=== PATIENT | male | born 1980 | race Caucasian/White ===

== ENCOUNTER → 2016-12-07 | Outpatient (REF) | payer OTHER | LOC: M LAB REF 10:55 | PROVIDERS: ATTEND Internal Medicine | DX: R07.9 Chest pain, unspecified (principal) ==

== ENCOUNTER → 2017-10-14 | Outpatient (REF) | payer OTHER | LOC: M SMT 13:32 | DX: Z30.2 Encounter for sterilization (principal) | CPT/HCPCS: 88302 ==

== ENCOUNTER → 2020-01-30 | Outpatient (CLI) | payer SELFPAY | LOC: M LABSMTC 11:33 | PROVIDERS: ATTEND Pediatrics | DX: Z20.828 Contact with and (suspected) exposure to other viral communicable diseases (principal) ==

== ENCOUNTER → 2020-02-03 | Outpatient (CLI) | payer SELFPAY | LOC: M LABSMTC 12:54 | PROVIDERS: ATTEND Pediatrics | DX: Z20.828 Contact with and (suspected) exposure to other viral communicable diseases (principal) ==

== ENCOUNTER → 2020-07-01 | Outpatient (CLI) | payer SELFPAY | LOC: M LABSMTC 11:14 | PROVIDERS: ATTEND Pediatrics | DX: Z20.822 Contact with and (suspected) exposure to COVID-19 (principal) ==

== ENCOUNTER → 2023-05-17 | Outpatient (CLI) | payer OTHER, SELFPAY ==
[2023-05-17 11:12] LABS: BASO # 0.1 10^3/uL (0.0-0.2); BASO % 1.1 % (0.0-1.0); EOS # 0.1 10^3/uL (0.0-0.5); EOS % 1.3 % (0.0-3.0); HEMATOCRIT 45.9 % (42.0-52.0); HEMOGLOBIN 15.6 g/dl (13.5-17.5); LYMPH # 2.7 10^3/uL (1.5-5.0); LYMPH % 36.8 % (24.0-44.0); MEAN CORPUSCULAR HEMOGLOBIN 30.8 pg (27.0-33.0); MEAN CORPUSCULAR VOLUME 90.5 fl (80.0-96.0); MONO # 0.6 10^3/uL (0.0-0.8); MONO % 7.5 % (2.0-8.0); NEUTROPHILS # 3.9 10^3/uL (1.5-8.5); NEUTROPHILS % 52.8 % (36.0-66.0); PLATELET COUNT, AUTOMATED 330 10^3/uL (150-450); RED BLOOD COUNT 5.07 10^6/uL (4.30-6.10); WHITE BLOOD COUNT 7.5 10^3/uL (4.0-10.0)
[2023-05-17 11:28] LABS: HEMOGLOBIN A1c 5.6 % (4.0-6.0)
[2023-05-17 11:34] LABS: ALBUMIN 4.4 G/DL (3.2-5.2); ALKALINE PHOSPHATASE 61 U/L (46-116); ALT/SGPT 53 U/L (7.0-40); AST/SGOT 31 U/L (<34); BILIRUBIN,TOTAL 0.7 MG/DL (0.3-1.2); BLOOD UREA NITROGEN 22 MG/DL (9-23); CALCIUM LEVEL 9.5 MG/DL (8.5-10.1); CARBON DIOXIDE LEVEL 28 MMOL/L (20-31); CHLORIDE LEVEL 102 MMOL/L (98-107); CHOLESTEROL LEVEL 230 MG/DL (<200); CHOLESTEROL RISK RATIO 5.19 (<5); CREATININE FOR GFR 0.96 MG/DL (0.70-1.30); GLOMERULAR FILTRATION RATE > 60.0 (>60); GLUCOSE, FASTING 90 MG/DL (60-100); HDL CHOLESTEROL 44.3 MG/DL (>40); LDL CHOLESTEROL 149.3 MG/DL (<100); MAGNESIUM LEVEL 1.9 MG/DL (1.8-2.4); NON-HDL-C 185.7 MG/DL; POTASSIUM SERUM 4.6 MMOL/L (3.5-5.1); SODIUM LEVEL 136 MMOL/L (136-145); TOTAL PROTEIN 7.7 G/DL (5.7-8.2); TRIGLYCERIDES LEVEL 182 MG/DL (<150)
[2023-05-17 11:35] LABS: THYROID STIMULATING HORMONE 1.697 uIU/ML (0.55-4.78)
[2023-05-18 08:42] LABS: LDL DIRECT 173 mg/dL (0-99)
== END ==
LOC: M WUC 08:24
PROVIDERS: ATTEND Internal Medicine Cardiovascular Disease
DX: E78.2 Mixed hyperlipidemia (principal); I48.0 Paroxysmal atrial fibrillation; I50.9 Heart failure, unspecified; R06.02 Shortness of breath; R73.09 Other abnormal glucose; Z13.29 Encounter for screening for other suspected endocrine disorder

== ENCOUNTER → 2023-06-28 | Outpatient (REF) | payer OTHER ==
[2023-06-28 12:39] LABS: PSA SCREENING 0.44 NG/ML (< 4.00)
[2023-06-28 12:43] LABS: FOLLICLE STIMULATING HORMONE 6.4 mIU/ML (1.4-18.1)
[2023-06-28 12:44] LABS: ESTRADIOL 33.6 PG/ML (<39.8); LUTEINIZING HORMONE 2.3 mIU/ML (1.5-9.3)
[2023-06-28 12:47] LABS: HEMATOCRIT 45.6 % (42.0-52.0); HEMOGLOBIN 14.9 g/dl (13.5-17.5); MEAN CORPUSCULAR HEMOGLOBIN 30.8 pg (27.0-33.0); MEAN CORPUSCULAR HGB CONC 32.7 g/dl (32.0-36.5); MEAN CORPUSCULAR VOLUME 94.4 fl (80.0-96.0); PLATELET COUNT, AUTOMATED 294 10^3/uL (150-450); RED BLOOD COUNT 4.83 10^6/uL (4.30-6.10); WHITE BLOOD COUNT 6.1 10^3/uL (4.0-10.0)
== END ==
LOC: M LABWUC 11:22
PROVIDERS: ATTEND Physician Assistant
DX: E29.1 Testicular hypofunction (principal)
CPT/HCPCS: 36415; 82670; 83001; 83002; 84403; 85027; G0103

== ENCOUNTER 2024-01-06 07:18 | Observation (INO) | payer OTHER ==
[2024-01-06] VITALS (13 sets, daily range): BP systolic 131–162; BP diastolic 82–90; TEMP 97.9–101.1; O2SAT 92–94
[~2024-01-06] VITALS: Ht 172.7 cm; Wt 109.8 kg
[~2024-01-06 07:18] MED LIST: AMPH1CAP9 PO; CLON0.1D3 TOP; ROSU20TA86 PO; VALS1TAB66 PO; VITA100093 PO
[2024-01-06] MEDS ORDERED: NS 1,000 ML IV SCH ×2 (07:45→09:10)
[2024-01-06] MEDS ORDERED: TEST10GE TOP (07:53)
[2024-01-06] MEDS ORDERED: ONDANSETRON 4MG 2ML VIAL As Ordered ONE (08:50)
[2024-01-06] MEDS ORDERED: fentaNYL 100 MCG/2 ML INJECTION As Ordered ONE (08:50)
[2024-01-06] MEDS ORDERED: LIDOCAINE 2% 100MG/5ML SDV (FOR ANES.) As Ordered ONE (08:50)
[2024-01-06] MEDS ORDERED: KETOROLAC 60MG 2ML VIAL As Ordered ONE (08:50)
[2024-01-06] MEDS ORDERED: MIDAZOLAM INJ 2MG/2ML VIAL As Ordered ONE (08:50)
[2024-01-06] MEDS ORDERED: propofoL 200 MG/20 ML VIAL As Ordered ONE (08:50)
[2024-01-06] MEDS ORDERED: oxyCODONE 5MG TAB PO PRN (09:10)
[2024-01-06] MEDS ORDERED: fentaNYL 100 MCG/2 ML INJECTION IV PRN (09:10)
[2024-01-06] MEDS ORDERED: ONDANSETRON 4MG 2ML VIAL IV PRN (09:10)
[2024-01-06] MEDS ORDERED: HYDROMORPHONE HCL 0.5 MG/ 0.5 ML SYRINGE IV PRN (09:10)
[2024-01-06] MEDS: ALBUTEROL SULFATE 2.5MG/0.5ML INH NEB SOLN INH ONE (11:02)
[2024-01-06] MEDS ORDERED: ALBUTEROL SULFATE 2.5MG/0.5ML INH NEB SOLN NEB PRN (11:40)
[2024-01-06 12:04] LABS: HEMATOCRIT 44.2 % (42.0-52.0); HEMOGLOBIN 14.7 g/dl (13.5-17.5); MEAN CORPUSCULAR HEMOGLOBIN 30.8 pg (27.0-33.0); MEAN CORPUSCULAR HGB CONC 33.3 g/dl (32.0-36.5); MEAN CORPUSCULAR VOLUME 92.7 fl (80.0-96.0); PLATELET COUNT, AUTOMATED 294 10^3/uL (150-450); RED BLOOD COUNT 4.77 10^6/uL (4.30-6.10); WHITE BLOOD COUNT 20.1 10^3/uL (4.0-10.0)
[2024-01-06 12:23] LABS: VENOUS HCO3 23.1 MMOL/L (23.0-27.0); VENOUS O2 SATURATION 56.9 % (60.0-80.0); VENOUS PARTIAL PRESSURE CO2 54.3 mmHg (38.0-50.0); VENOUS PARTIAL PRESSURE O2 31.2 mmHg (30.0-50.0); VENOUS PH 7.246 UNITS (7.330-7.430); VENOUS STANDARD HCO3 19.4 MMOL/L; VENOUS TOTAL CO2 24.7 MMOL/L (24.0-28.0)
[2024-01-06 12:32] LABS: ALBUMIN 3.8 G/DL (3.2-5.2); ALKALINE PHOSPHATASE 59 U/L (40-129); ALT/SGPT 32 U/L (7.0-40); AST/SGOT 20 U/L (<34); BILIRUBIN,TOTAL 0.6 MG/DL (0.3-1.2); BLOOD UREA NITROGEN 18 MG/DL (9-23); CALCIUM LEVEL 9.1 MG/DL (8.5-10.1); CARBON DIOXIDE LEVEL 25 MMOL/L (20-31); CHLORIDE LEVEL 108 MMOL/L (98-107); CREATININE FOR GFR 0.76 MG/DL (0.70-1.30); GLOMERULAR FILTRATION RATE > 60.0 (>60); GLUCOSE, FASTING 118 MG/DL (60-100); POTASSIUM SERUM 3.9 MMOL/L (3.5-5.1); SODIUM LEVEL 140 MMOL/L (136-145); TOTAL PROTEIN 7.1 G/DL (5.7-8.2)
[2024-01-06 12:38] LABS: PROCALCITONIN <0.04 ng/ml
[2024-01-06] MEDS: NS 500 ML IV ONE ×2 (13:24→17:49)
[2024-01-06] MEDS: IPRATROPIUM 0.5MG/ALBUTEROL 2.5MG INH SOL UD 3ML (DUONEB) NEB SCH (15:12)
[2024-01-06] MEDS ORDERED: methylPREDNISolone 40MG 1ML VIAL IV SCH (16:00)
[2024-01-06] MEDS: METOCLOPRAMIDE INJ 10MG/2ML VIAL IV SCH (16:03)
[2024-01-06] MEDS: cefTRIAXone SOD 1 GM in DEXTROSE 5% (D5W) ADV/MINI-BAG 50 ML IV SCH (16:03)
[2024-01-06] MEDS ORDERED: HOME MED LIST COMPLETE! XX SCH (16:50)
[2024-01-06] MEDS: VALSARTAN 80 MG TAB (DIOVAN) PO SCH (17:59)
[2024-01-06] MEDS: methylPREDNISolone 40MG 1ML VIAL IV SCH (20:11)
[2024-01-06] MEDS: DOXYCYCLINE HYCLATE 100MG TABLET PO SCH (20:11)
[2024-01-06 22:10] LABS: VENOUS BASE EXCESS -0.4 (-2.0-2.0); VENOUS HCO3 23.9 MMOL/L (23.0-27.0); VENOUS O2 SATURATION 84.5 % (60.0-80.0); VENOUS PARTIAL PRESSURE CO2 38.1 mmHg (38.0-50.0); VENOUS PARTIAL PRESSURE O2 45.7 mmHg (30.0-50.0); VENOUS PH 7.415 UNITS (7.330-7.430); VENOUS STANDARD HCO3 23.8 MMOL/L; VENOUS TOTAL CO2 25.1 MMOL/L (24.0-28.0)
[2024-01-06 22:14] LABS: BASO # 0.1 10^3/uL (0.0-0.2); BASO % 0.3 % (0.0-1.0); EOS % 0.1 % (0.0-3.0); HEMATOCRIT 39.7 % (42.0-52.0); HEMOGLOBIN 13.8 g/dl (13.5-17.5); LYMPH # 1.3 10^3/uL (1.5-5.0); LYMPH % 5.2 % (24.0-44.0); MEAN CORPUSCULAR HEMOGLOBIN 31.6 pg (27.0-33.0); MEAN CORPUSCULAR HGB CONC 34.8 g/dl (32.0-36.5); MEAN CORPUSCULAR VOLUME 90.8 fl (80.0-96.0); MONO # 0.7 10^3/uL (0.0-0.8); MONO % 2.8 % (2.0-8.0); NEUTROPHILS # 22.7 10^3/uL (1.5-8.5); NEUTROPHILS % 91.1 % (36.0-66.0); PLATELET COUNT, AUTOMATED 294 10^3/uL (150-450); RED BLOOD COUNT 4.37 10^6/uL (4.30-6.10); WHITE BLOOD COUNT 24.9 10^3/uL (4.0-10.0)
[2024-01-06 22:53] LABS: PROCALCITONIN 2.33 ng/ml
[2024-01-06 22:55] LABS: ALBUMIN 3.6 G/DL (3.2-5.2); ALKALINE PHOSPHATASE 58 U/L (40-129); ALT/SGPT 29 U/L (7.0-40); AST/SGOT 14 U/L (<34); BILIRUBIN,DIRECT 0.2 MG/DL (<0.4); BILIRUBIN,TOTAL 0.8 MG/DL (0.3-1.2); BLOOD UREA NITROGEN 14 MG/DL (9-23); CALCIUM LEVEL 9.4 MG/DL (8.5-10.1); CARBON DIOXIDE LEVEL 28 MMOL/L (20-31); CHLORIDE LEVEL 106 MMOL/L (98-107); CREATININE FOR GFR 0.83 MG/DL (0.70-1.30); GLOMERULAR FILTRATION RATE > 60.0 (>60); GLUCOSE, FASTING 138 MG/DL (60-100); MAGNESIUM LEVEL 1.8 MG/DL (1.8-2.4); POTASSIUM SERUM 4.1 MMOL/L (3.5-5.1); SODIUM LEVEL 138 MMOL/L (136-145); TOTAL PROTEIN 6.7 G/DL (5.7-8.2)
[2024-01-06] MEDS: DOCUSATE SODIUM 100MG CAPSULE PO SCH (23:23)
[2024-01-06] MEDS: ACETAMINOPHEN 325 MG TAB PO PRN (23:35)
[2024-01-07] VITALS (11 sets, daily range): BP systolic 145–172; BP diastolic 79–95; TEMP 97.2–99.4; O2SAT 90–96
[2024-01-07 06:25] LABS: HEMATOCRIT 40.7 % (42.0-52.0); HEMOGLOBIN 13.8 g/dl (13.5-17.5); MEAN CORPUSCULAR HEMOGLOBIN 31.2 pg (27.0-33.0); MEAN CORPUSCULAR HGB CONC 33.9 g/dl (32.0-36.5); MEAN CORPUSCULAR VOLUME 91.9 fl (80.0-96.0); PLATELET COUNT, AUTOMATED 315 10^3/uL (150-450); RED BLOOD COUNT 4.43 10^6/uL (4.30-6.10); WHITE BLOOD COUNT 24.9 10^3/uL (4.0-10.0)
[2024-01-07 06:48] LABS: ALBUMIN 3.6 G/DL (3.2-5.2); ALKALINE PHOSPHATASE 61 U/L (40-129); ALT/SGPT 30 U/L (7.0-40); AST/SGOT 15 U/L (<34); BILIRUBIN,TOTAL 1.2 MG/DL (0.3-1.2); BLOOD UREA NITROGEN 12 MG/DL (9-23); CALCIUM LEVEL 9.6 MG/DL (8.5-10.1); CARBON DIOXIDE LEVEL 27 MMOL/L (20-31); CHLORIDE LEVEL 106 MMOL/L (98-107); CREATININE FOR GFR 0.71 MG/DL (0.70-1.30); GLOMERULAR FILTRATION RATE > 60.0 (>60); GLUCOSE, FASTING 134 MG/DL (60-100); POTASSIUM SERUM 4.6 MMOL/L (3.5-5.1); SODIUM LEVEL 137 MMOL/L (136-145)
[2024-01-07] MEDS: VITAMIN D 1,000 INTERNATIONAL UNITS TABLET PO SCH (10:03)
[2024-01-07] MEDS: ROSUVASTATIN 10 MG TAB (CRESTOR) PO SCH (10:05)
[2024-01-07] MEDS: PANTOPRAZOLE 40MG TAB (PROTONIX) PO SCH (10:05)
[2024-01-08] VITALS (9 sets, daily range): BP systolic 131–156; BP diastolic 77–90; TEMP 96.3–98.4; O2SAT 90–95
[2024-01-08 06:20] LABS: HEMOGLOBIN 13.5 g/dl (13.5-17.5); MEAN CORPUSCULAR HEMOGLOBIN 30.8 pg (27.0-33.0); MEAN CORPUSCULAR HGB CONC 33.8 g/dl (32.0-36.5); MEAN CORPUSCULAR VOLUME 91.1 fl (80.0-96.0); PLATELET COUNT, AUTOMATED 323 10^3/uL (150-450); RED BLOOD COUNT 4.39 10^6/uL (4.30-6.10); WHITE BLOOD COUNT 22.2 10^3/uL (4.0-10.0)
[2024-01-08 07:43] LABS: ALBUMIN 3.7 G/DL (3.2-5.2); ALKALINE PHOSPHATASE 55 U/L (40-129); ALT/SGPT 25 U/L (7.0-40); AST/SGOT < 8 U/L (<34); BILIRUBIN,TOTAL 0.5 MG/DL (0.3-1.2); BLOOD UREA NITROGEN 14 MG/DL (9-23); CALCIUM LEVEL 9.7 MG/DL (8.5-10.1); CARBON DIOXIDE LEVEL 26 MMOL/L (20-31); CHLORIDE LEVEL 107 MMOL/L (98-107); CREATININE FOR GFR 0.71 MG/DL (0.70-1.30); GLOMERULAR FILTRATION RATE > 60.0 (>60); GLUCOSE, FASTING 128 MG/DL (60-100); POTASSIUM SERUM 4.5 MMOL/L (3.5-5.1); SODIUM LEVEL 139 MMOL/L (136-145); TOTAL PROTEIN 7.2 G/DL (5.7-8.2)
[2024-01-08] MEDS: cloNIDine HCL 0.1 MG/24 HR PATCH TD SCH (09:23)
[2024-01-08 14:47] LABS: PROCALCITONIN 1.01 ng/ml
[2024-01-08] MEDS ORDERED: ARTIFICIAL TEARS DROPS 15ML BTL (VISINE DRY RELIEF) OU PRN (15:50)
[2024-01-09 04:00] VITALS: BP 140/90; TEMP 97.7; O2SAT 95
[2024-01-09 05:52] LABS: HEMOGLOBIN 13.8 g/dl (13.5-17.5); MEAN CORPUSCULAR HEMOGLOBIN 30.9 pg (27.0-33.0); MEAN CORPUSCULAR HGB CONC 32.9 g/dl (32.0-36.5); MEAN CORPUSCULAR VOLUME 94.2 fl (80.0-96.0); PLATELET COUNT, AUTOMATED 310 10^3/uL (150-450); RED BLOOD COUNT 4.46 10^6/uL (4.30-6.10); WHITE BLOOD COUNT 21.7 10^3/uL (4.0-10.0)
[2024-01-09 06:00] VITALS: O2SAT 95
[2024-01-09 06:18] LABS: ALBUMIN 3.8 G/DL (3.2-5.2); ALKALINE PHOSPHATASE 53 U/L (40-129); ALT/SGPT 27 U/L (7.0-40); AST/SGOT 9 U/L (<34); BILIRUBIN,TOTAL 0.6 MG/DL (0.3-1.2); BLOOD UREA NITROGEN 20 MG/DL (9-23); CALCIUM LEVEL 9.9 MG/DL (8.5-10.1); CARBON DIOXIDE LEVEL 27 MMOL/L (20-31); CHLORIDE LEVEL 106 MMOL/L (98-107); CREATININE FOR GFR 0.79 MG/DL (0.70-1.30); GLOMERULAR FILTRATION RATE > 60.0 (>60); GLUCOSE, FASTING 96 MG/DL (60-100); POTASSIUM SERUM 3.9 MMOL/L (3.5-5.1); SODIUM LEVEL 140 MMOL/L (136-145); TOTAL PROTEIN 7.3 G/DL (5.7-8.2)
[2024-01-09 06:25] LABS: PROCALCITONIN 0.67 ng/ml
[2024-01-09] MEDS: predniSONE 20 MG TAB PO SCH (09:35)
[2024-01-09 09:39] VITALS: BP 156/94
[2024-01-09 12:00] VITALS: BP 149/89; TEMP 97.7; O2SAT 93
[2024-01-09] MEDS ORDERED: PRED20TA PO (14:28)
[2024-01-09] MEDS ORDERED: CEFU50TA PO (14:31)
[2024-01-09] MEDS ORDERED: CEFUROXIME 500 MG TAB PO SCH (17:35)
== END 2024-01-09 17:42 | disposition home or self-care (01) ==
LOC: M SDC 07:18 → M RR INP 07:19 → M MSPAV 11:58
PROVIDERS: ADMIT Hospitalist; ATTEND Student in an Organized Health Care Education/Training Program
DX: G56.02 Carpal tunnel syndrome, left upper limb (principal); R11.10 Vomiting, unspecified; Z53.09 Procedure and treatment not carried out because of other contraindication; J69.0 Pneumonitis due to inhalation of food and vomit; J96.01 Acute respiratory failure with hypoxia; E87.20 Acidosis, unspecified; I10 Essential (primary) hypertension; K58.9 Irritable bowel syndrome, unspecified; G47.33 Obstructive sleep apnea (adult) (pediatric); E66.812 Obesity, class 2; R53.1 Weakness; E78.5 Hyperlipidemia, unspecified; R53.81 Other malaise; Z79.899 Other long term (current) drug therapy
CPT/HCPCS: 36415; 64721; 71045; 74018; 80048; 80053; 80076; 82803; 83605; 83735; 84145; 85025; 85027; 86140; 87040; 87070; 87184; 87186; 87205; 87641; 93005; 94640; 94660; 96374; 96375; 96376; J0665; J0696; J2250; J2765; J2919; J3010; J7512

== ENCOUNTER 2024-02-24 08:29 | Day surgery (SDC) | payer OTHER ==
[~2024-02-24] VITALS: Ht 175.3 cm; Wt 112.5 kg
[~2024-02-24 08:29] MED LIST changes: +ALBU8.5H; +CEFU50TA PO; +FORTESTA; +NS 250 ML IV ONE; +OMEP40CA4 PO; +PRED20TA PO; +TEST10GE TOP
[2024-02-24] MEDS ORDERED: LIDOCAINE 2% 100MG/5ML SDV (FOR ANES.) As Ordered ONE (09:32)
[2024-02-24] MEDS ORDERED: GLYCOPYRROLATE INJ 0.2 MG/ML 2 ML VIAL As Ordered ONE (09:32)
[2024-02-24] MEDS ORDERED: propofoL 200 MG/20 ML VIAL As Ordered ONE (09:32)
[2024-02-24 09:46] VITALS: TEMP 97.8
[2024-02-24 10:07] VITALS: BP 131/74; O2SAT 95
== END 2024-02-24 10:08 | disposition home or self-care (01) ==
LOC: M OPP 08:29
PROVIDERS: ATTEND Internal Medicine Gastroenterology
DX: K22.89 Other specified disease of esophagus (principal); K44.9 Diaphragmatic hernia without obstruction or gangrene; I10 Essential (primary) hypertension; E78.5 Hyperlipidemia, unspecified; K21.9 Gastro-esophageal reflux disease without esophagitis; G47.30 Sleep apnea, unspecified; Z79.899 Other long term (current) drug therapy
CPT/HCPCS: 43239; 88305; J1596

== ENCOUNTER → 2024-03-26 | Outpatient (CLI) | payer OTHER ==
[~2024-03-26] MED LIST changes: -NS 250 ML IV ONE; +TEST75GE
[2024-03-26 14:02] LABS: HEMATOCRIT 44.2 % (42.0-52.0); HEMOGLOBIN 14.9 g/dl (13.5-17.5); MEAN CORPUSCULAR HEMOGLOBIN 30.8 pg (27.0-33.0); MEAN CORPUSCULAR HGB CONC 33.7 g/dl (32.0-36.5); MEAN CORPUSCULAR VOLUME 91.5 fl (80.0-96.0); PLATELET COUNT, AUTOMATED 297 10^3/uL (150-450); RED BLOOD COUNT 4.83 10^6/uL (4.30-6.10); WHITE BLOOD COUNT 6.9 10^3/uL (4.0-10.0)
== END ==
LOC: M WUC 09:17
PROVIDERS: ATTEND Physician Assistant
DX: E29.1 Testicular hypofunction (principal)

== ENCOUNTER → 2024-03-26 | Outpatient (CLI) | payer OTHER ==
[2024-03-26 14:38] LABS: HEMOGLOBIN A1c 5.5 % (4.0-6.0)
[2024-03-26 14:40] LABS: ALBUMIN 4.1 G/DL (3.2-5.2); ALKALINE PHOSPHATASE 58 U/L (40-129); ALT/SGPT 38 U/L (7.0-40); AST/SGOT 27 U/L (<34); BILIRUBIN,TOTAL 0.5 MG/DL (0.3-1.2); BLOOD UREA NITROGEN 22 MG/DL (9-23); CALCIUM LEVEL 9.2 MG/DL (8.5-10.1); CARBON DIOXIDE LEVEL 27 MMOL/L (20-31); CHLORIDE LEVEL 105 MMOL/L (98-107); CREATININE FOR GFR 0.91 MG/DL (0.70-1.30); GLOMERULAR FILTRATION RATE > 60.0 (>60); GLUCOSE, FASTING 96 MG/DL (60-100); MAGNESIUM LEVEL 1.8 MG/DL (1.8-2.4); POTASSIUM SERUM 4.2 MMOL/L (3.5-5.1); SODIUM LEVEL 142 MMOL/L (136-145); TOTAL PROTEIN 7.5 G/DL (5.7-8.2)
== END ==
LOC: M WUC 09:15
PROVIDERS: ATTEND Internal Medicine Cardiovascular Disease
DX: I11.0 Hypertensive heart disease with heart failure (principal); I50.9 Heart failure, unspecified; Z13.1 Encounter for screening for diabetes mellitus; R06.02 Shortness of breath

== ENCOUNTER 2024-04-03 06:15 | Day surgery (SDC) | payer OTHER ==
[~2024-04-03] VITALS: Ht 175.3 cm; Wt 116.6 kg
[2024-04-03] MEDS ORDERED: NS (Normal Saline) 0.9% 1,000 ML IV SCH ×2 (06:50→08:30)
[2024-04-03] MEDS ORDERED: fentaNYL 100 MCG/2 ML INJECTION As Ordered ONE (07:05)
[2024-04-03] MEDS ORDERED: propofoL 200 MG/20 ML VIAL As Ordered ONE (07:05)
[2024-04-03] MEDS ORDERED: LIDOCAINE 2% 100MG/5ML SDV (FOR ANES.) As Ordered ONE (07:05)
[2024-04-03] MEDS ORDERED: MIDAZOLAM INJ 2MG/2ML VIAL As Ordered ONE (07:05)
[2024-04-03] MEDS ORDERED: FAMOTIDINE 20MG/2ML VIAL IVP ONE (07:15)
[2024-04-03] MEDS ORDERED: FAMOTIDINE 20MG/2ML VIAL As Ordered ONE (07:23)
[2024-04-03] MEDS ORDERED: BICITRA 30ML SOLN UDC As Ordered ONE (07:26)
[2024-04-03] MEDS ORDERED: ROCURONIUM BROMIDE 50MG/5ML VIAL As Ordered ONE (07:29)
[2024-04-03] MEDS ORDERED: SUCCINYLCHOLINE 100MG/5ML SYRINGE As Ordered ONE (07:29)
[2024-04-03] MEDS: BICITRA 30ML SOLN UDC PO ONE (07:34)
[2024-04-03] MEDS ORDERED: KETOROLAC 60MG 2ML VIAL As Ordered ONE (08:04)
[2024-04-03] MEDS ORDERED: ONDANSETRON 4MG 2ML VIAL As Ordered ONE (08:04)
[2024-04-03] MEDS ORDERED: METOCLOPRAMIDE INJ 10MG/2ML VIAL As Ordered ONE (08:04)
[2024-04-03] MEDS: BACITRACIN OINTMENT 30GM TUBE As Ordered ONE (08:17)
[2024-04-03] MEDS ORDERED: ONDANSETRON 4MG 2ML VIAL IV PRN (08:30)
[2024-04-03] MEDS ORDERED: fentaNYL 100 MCG/2 ML INJECTION IV PRN (08:30)
[2024-04-03] MEDS ORDERED: HYDROMORPHONE HCL 0.5 MG/ 0.5 ML SYRINGE IV PRN (08:30)
[2024-04-03] MEDS ORDERED: oxyCODONE 5MG TAB PO PRN (08:30)
[2024-04-03 09:13] VITALS: BP 140/69; TEMP 97; O2SAT 97
== END 2024-04-03 09:30 | disposition home or self-care (01) ==
LOC: M SDC 06:15
PROVIDERS: ATTEND Orthopaedic Surgery Hand Surgery
DX: G56.02 Carpal tunnel syndrome, left upper limb (principal); I10 Essential (primary) hypertension; G47.33 Obstructive sleep apnea (adult) (pediatric); R06.83 Snoring; Z79.899 Other long term (current) drug therapy
CPT/HCPCS: 29848; J0330; J0665; J1100; J1885; J2250; J2405; J2765; J3010; S0028

== ENCOUNTER → 2024-05-21 | Outpatient (REF) | payer OTHER | LOC: M LABWUC 12:39 | PROVIDERS: ATTEND Physician Assistant | DX: E29.1 Testicular hypofunction (principal) ==

== ENCOUNTER 2024-06-05 15:29 | Emergency (ER) | payer OTHER ==
[~2024-06-05] VITALS: Ht 175.3 cm; Wt 112.4 kg
[2024-06-05 15:37] VITALS: TEMP 98.7; O2SAT 100
[2024-06-05 15:43] VITALS: BP 160/96
[2024-06-05 16:18] LABS: BASO # 0.1 10^3/uL (0.0-0.2); BASO % 0.5 % (0.0-1.0); EOS # 0.1 10^3/uL (0.0-0.5); EOS % 1.2 % (0.0-3.0); HEMATOCRIT 42.8 % (42.0-52.0); LYMPH # 2.4 10^3/uL (1.5-5.0); LYMPH % 21.2 % (24.0-44.0); MEAN CORPUSCULAR HEMOGLOBIN 30.9 pg (27.0-33.0); MEAN CORPUSCULAR VOLUME 88.2 fl (80.0-96.0); MONO # 0.8 10^3/uL (0.0-0.8); MONO % 7.4 % (2.0-8.0); NEUTROPHILS # 7.8 10^3/uL (1.5-8.5); NEUTROPHILS % 69.4 % (36.0-66.0); PLATELET COUNT, AUTOMATED 285 10^3/uL (150-450); RED BLOOD COUNT 4.85 10^6/uL (4.30-6.10); WHITE BLOOD COUNT 11.3 10^3/uL (4.0-10.0)
[2024-06-05 16:29] LABS: INR 0.82; PARTIAL THROMBOPLASTIN TIME 23.9 SECONDS (24.8-34.2); PROTHROMBIN TIME 11.6 SECONDS (12.5-14.5)
[2024-06-05 16:49] LABS: ALBUMIN 4.3 G/DL (3.2-5.2); ALKALINE PHOSPHATASE 64 U/L (40-129); ALT/SGPT 48 U/L (7.0-40); AST/SGOT 47 U/L (<34); BILIRUBIN,DIRECT 0.1 MG/DL (<0.4); BILIRUBIN,TOTAL 0.5 MG/DL (0.3-1.2); BLOOD UREA NITROGEN 17 MG/DL (9-23); CALCIUM LEVEL 9.2 MG/DL (8.5-10.1); CARBON DIOXIDE LEVEL 25 MMOL/L (20-31); CHLORIDE LEVEL 101 MMOL/L (98-107); CK-MB VALUE MASS < 1.0 NG/ML (<3.6); CPK CREATINE PHOSPHOKINASE 163 U/L (46-171); CREATININE FOR GFR 0.73 MG/DL (0.70-1.30); GLOMERULAR FILTRATION RATE > 60.0 (>60); GLUCOSE, FASTING 98 MG/DL (60-100); MB/CK RELATIVE INDEX 0.61 (< OR =4); POTASSIUM SERUM 4.5 MMOL/L (3.5-5.1); SODIUM LEVEL 137 MMOL/L (136-145); TOTAL PROTEIN 7.5 G/DL (5.7-8.2)
== END 2024-06-05 16:58 | disposition left against medical advice (07) ==
LOC: M ED 15:29
DX: Z53.21 Procedure and treatment not carried out due to patient leaving prior to being seen by health care provider (principal)

== ENCOUNTER → 2024-07-01 | Outpatient (CLI) | payer OTHER | LOC: M RAD 15:06 | PROVIDERS: ATTEND Physician Assistant | DX: R20.2 Paresthesia of skin (principal); I10 Essential (primary) hypertension ==

== ENCOUNTER → 2025-01-19 | Outpatient (CLI) | payer OTHER ==
[2025-01-19 13:12] LABS: PLATELET COUNT, AUTOMATED 308 10^3/uL (150-450)
[2025-01-19 13:30] LABS: PSA SCREENING 0.46 NG/ML (< 4.00)
[2025-01-19 13:35] LABS: TESTOSTERONE 223.0 NG/DL (241-827)
== END ==
LOC: M WUC 09:19
PROVIDERS: ATTEND Physician Assistant
DX: E29.1 Testicular hypofunction (principal)
CPT/HCPCS: 36415; 84403; 85027; G0103